=== PATIENT | male | born 1980 | race Caucasian/White ===

== ENCOUNTER 2017-04-04 12:40 | Emergency (ER) | payer SELFPAY ==
[~2017-04-04] VITALS: Ht 188 cm; Wt 92.0 kg
[2017-04-04 12:42] VITALS: BP 127/80; PULSE 75; RESP 20; TEMP 98.1; O2SAT 98
[2017-04-04] MEDS ORDERED: IBUP1TAB7 PO (13:03)
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
[2017-04-04] MEDS ORDERED: DEXAMETHASONE SOD PHOS 4 MG/ML VIAL IM ONE (13:15)
[2017-04-04] MEDS ORDERED: KETOROLAC TROMETHAMINE 60 MG/2 ML (IM) VIAL IM ONE (13:15)
[2017-04-04] MEDS ORDERED: ACETAMINOPHEN/HYDROcodone 325 MG/5 MG TAB PO ONE (13:15)
--- NOTE | 2017-04-04 14:06 | RADRPT ---
EXAM DATE/TIME: 04/04/2017 13:49 [facility] COMPARISON: No previous studies available for comparison. INDICATIONS : Back pain, no trauma. MEDICAL HISTORY : Smoker. SURGICAL HISTORY : None. ENCOUNTER: Initial ACUITY: 2 days PAIN SCORE: 10/10 LOCATION: Entire thoracic spine. FINDINGS: There is normal alignment of the thoracic vertebral bodies. Vertebral body height is maintained. No evidence of fracture or subluxation. Pedicles are intact at all levels. The paravertebral reflecti ons are not thickened. CONCLUSION: Unremarkable examination of the thoracic spine. Mild rightward broad scoliosis. Jony Garces MD on April 04, 2017 at 14:03 Board Certified Radiologist. This report was verified electronically.
--- NOTE | 2017-04-04 14:08 | RADRPT ---
EXAM DATE/TIME: 04/04/2017 13:47 [facility] COMPARISON: No previous studies available for comparison. INDICATIONS : Lower back pain, no trauma. MEDICAL HISTORY : Smoker. SURGICAL HISTORY : None. ENCOUNTER: Initial ACUITY: 2 days PAIN SCORE: 10/10 LOCATION: Lower back. FINDINGS: Two view examination was performed. There are five non-rib bearing vertebral bodies. The vertebral bodies are in normal alignment without evidence of subluxation or scoliosis. The disc spaces are mindy ntained. The pedicles are intact. Bony mineralization is normal. No fracture is identified. Mild a nterior disc space spurring CONCLUSION: Unremarkable limited examination of the lumbar spine except mild degenerative disease at L4-5. Jony Garces MD on April 04, 2017 at 14:06 Board Certified Radiologist. This report was verified electronically.
[2017-04-04] MEDS ORDERED: MEDR4PAK PO (14:13)
[2017-04-04] MEDS ORDERED: ROBA500T PO (14:13)
[2017-04-04 14:43] VITALS: RESP 20
== END 2017-04-04 14:47 | disposition home or self-care (01) ==
LOC: NEPK 12:40
DX: M62.830 Muscle spasm of back (principal); E78.00 Pure hypercholesterolemia, unspecified; F17.200 Nicotine dependence, unspecified, uncomplicated; Z79.899 Other long term (current) drug therapy
CPT/HCPCS: 72072; 72100; 96372; 99284; J1100; J1885